=== PATIENT | male | born 1960 | race African-American/Black ===

== ENCOUNTER 2017-12-23 12:18 | Inpatient (IN) | payer OTHER ==
[2017-12-23 12:38] VITALS: BMI 23.8
[2017-12-23] MEDS ORDERED: ACETAMINOPHEN 325 MG TABLET (FP) PO PRN (13:23)
[2017-12-23] MEDS ORDERED: NICOTINE POLACRILEX 4 MG GUM BC PRN (13:23)
[2017-12-23] MEDS ORDERED: P-EPHED 60MG/TRIPROLIDI 2.5MG TABLET PO PRN (13:23)
[2017-12-23] MEDS ORDERED: MAGNESIUM HYDROX 2400MG/30ML ORAL SUSPENSION 30 ML CUP PO PRN (13:23)
[2017-12-23] MEDS ORDERED: MENTHOL/PHENOL 1 EACH UD MM PRN (13:23)
[2017-12-23] MEDS ORDERED: MAGNESIUM CITRATE 300 ML BOTTLE PO PRN (13:23)
[2017-12-23] MEDS ORDERED: LOPERAMIDE HCL 2 MG CAPSULE PO PRN (13:23)
[2017-12-23] MEDS ORDERED: chlordiazePOXIDE HCL 25 MG CAPSULE PO PRN (13:23)
[2017-12-23] MEDS ORDERED: MAG HYDROX/AL HYDROX/SIMETH 30 ML UNIT-DOSE CUP PO PRN (13:23)
[2017-12-23] MEDS ORDERED: guaiFENesin/D-METHORPHAN HB 10 ML UNIT-DOSE CUPS PO PRN (13:23)
--- NOTE | 2017-12-23 13:23 | HP ---
CIWA Score - CIWA Score Nausea/Vomitin-Mild Nausea/No Vomiting Muscle Tremors: 3 Anxiety: 4-Mod. Anxious/Guarded Agitation: 4-Moderately Restless Paroxysmal Sweats: 1-Minimal Palms Moist Orientation: 1-Uncertain about Date Tacttile Disturbances: 0-None Auditory Disturbances: 0-None Visual Disturbances: 0-None Headache: 0-None Present CIWA-Ar Total Score: 14 Admission ROS BHS - HPI Chief Complaint: alcohol withdrawal sx Allergies/Adverse Reactions: Allergies Allergy/AdvReac Type Severity Reaction Status Date / Time No Known Allergies Allergy Verified 12/23/17 13:02 History of Present Illness: 57 years old male with long history of alcohol nicotine dependence has right inqoin hernia depression hepatitis c is admitted to detox Exam Limitations: No Limitations - Ebola screening Have you traveled outside of the country in the last 21 days: No Have you had contact with anyone from an Ebola affected area: No Have you been sick,other than usual withdrawal symptoms: No Do you have a fever: No - Review of Systems Constitutional: Loss of Appetite, Changes in sleep, Unintentional Wgt. Loss, Unexplained wgt Loss EENT: reports: Blurred Vision (eye glasses) Respiratory: reports: No Symptoms reported Cardiac: reports: No Symptoms Reported GI: reports: Nausea, Poor Appetite, Poor Fluid Intake, Abdominal cramping : reports: No Symptoms Reported Musculoskeletal: reports: No Symptoms Reported Integumentary: reports: No Symptoms Reported Neuro: reports: Tremors Endocrine: reports: No Symptoms Reported Hematology: reports: No Symptoms Reported Psychiatric: reports: Judgement Intact, Anxious, Depressed Other Systems: Reviewed and Negative Patient History - Patient Medical History Hx Anemia: No Hx Asthma: No Hx Chronic Obstructive Pulmonary Disease (COPD): No Hx Cancer: No Hx Cardiac Disorders: No Hx Congestive Heart Failure: No Hx Hypertension: No Hx Hypercholesterolemia: No Hx Pacemaker: No HX Cerebrovascular Accident: No Hx Seizures: No Hx Dementia: No Hx Diabetes: No Hx Gastrointestinal Disorders: No Hx Liver Disease: No Hx Genitourinary Disorders: No Hx Sexually Transmitted Disorders: No Hx Renal Disease (ESRD): No Hx Thyroid Disease: No Hx Human Immunodeficiency Virus (HIV): No Hx Hepatitis C: Yes Hx Depression: Yes Hx Suicide Attempt: No Hx Bipolar Disorder: No Hx Schizophrenia: No - Patient Surgical History Past Surgical History: No Hx Neurologic Surgery: No Hx Cataract Extraction: No Hx Cardiac Surgery: No Hx Lung Surgery: No Hx Breast Surgery: No Hx Breast Biopsy: No Hx Abdominal Surgery: No Hx Appendectomy: No Hx Cholecystectomy: No Hx Genitourinary Surgery: No Hx Orthopedic Surgery: No - PPD History Previous Implant?: Yes Documented Results: Negative w/proof Implanted On Prior [facility] Admission?: Yes Date: 05/14/13 Results: 0 mm PPD to be Administered?: Yes - Smoking Cessation Smoking history: Current every day smoker Have you smoked in the past 12 months: Yes Aproximately how many cigarettes per day: 20 Cigars Per Day: 0 Hx Chewing Tobacco Use: No Initiated information on smoking cessation: Yes 'Breaking Loose' booklet given: 12/23/17 - Substance & Tx. History Hx Alcohol Use: Yes Hx Substance Use: Yes Substance Use Type: Alcohol, Cocaine, Marijuana Hx Substance Use Treatment: Yes (2012) - Substances Abused Crack Route: Smoking Frequency: Daily Amount used: $150 Age of first use: 28 Date of Last Use: 12/22/17 Alcohol-beer Route: Oral Frequency: Daily Amount used: 1-2 6 pks. Age of first use: 28 Date of Last Use: 12/22/17 Family Disease History - Family Disease History Family Disease History: Heart Disease: Mother (), Other: Father (alcohol ,), Mother Admission Physical Exam S - Vital Signs Vital Signs: Vital Signs - 24 hr 12/23/17 12:31 Temperature 97.4 F L Pulse Rate 82 Respiratory 18 Rate Blood Pressure 125/73 - Physical General Appearance: Yes: Appropriately Dressed, Mild Distress, Thin, Tremorous, Irritable, Sweating, Anxious HEENTM: Yes: Hearing grossly Normal, Normocephalic, Normal Voice Respiratory: Yes: Chest Non-Tender, Lungs Clear, Normal Breath Sounds, No Respiratory Distress, No Accessory Muscle Use Neck: Yes: Supple, Trachea in good position Breast: Yes: Breasts Symetrical, No Discharge Cardiology: Yes: Regular Rhythm, Regular Rate, S1, S2 Abdominal: Yes: Normal Bowel Sounds, Non Tender, Flat Genitourinary: Yes: Within Normal Limits Back: Yes: Normal Inspection Musculoskeletal: Yes: full range of Motion, Gait Steady Extremities: Yes: Normal Inspection, Normal Range of Motion, Non-Tender, Tremors Neurological: Yes: Alert, Motor Strength 5/5, Normal Response, Depressed Affect Integumentary: Yes: Warm Lymphatic: Yes: Within Normal Limits - Diagnostic (1) Alcohol dependence with uncomplicated withdrawal Current Visit: Yes Status: Acute (2) Depression (emotion) Current Visit: Yes Status: Suspected Qualifiers: Depression Type: dysthymia Qualified Code(s): F34.1 - Dysthymic disorder (3) Weight loss Current Visit: Yes Status: Acute (4) Nicotine dependence Current Visit: Yes Status: Acute Qualifiers: Nicotine product type: cigarettes Substance use status: in withdrawal Qualified Code(s): F17.213 - Nicotine dependence, cigarettes, with withdrawal Cleared for Admission [facility] - Detox or Rehab [facility] Level of Care: Medically Managed Detox Regimen/Protocol: Librium S Breath Alcohol Content Breath Alcohol Content: 0 Urine Drug Screen - Results Drug Screen Negative: No Urine Drug Screen Results: THC-Marijuana, JAXSON-Cocaine
[2017-12-23] MEDS: NICOTINE 21 MG/24 HOURS TOPICAL PATCH TD SCH (15:00)
[2017-12-23] MEDS: chlordiazePOXIDE HCL 25 MG CAPSULE PO SCH ×2 (17:24→22:13)
[2017-12-23] MEDS ORDERED: MELATONIN 5 MG TABLETS PO PRN (22:00)
[2017-12-23] MEDS: THIAMINE HCL 100 MG TABLET (FP) PO SCH (22:13)
[2017-12-24 04:07] LABS: URINE APPEARANCE CLEAR; URINE BILIRUBIN NEGATIVE (<2.0 mg/dL); URINE BLOOD NEGATIVE (NEGATIVE); URINE COLOR AMBER; URINE GLUCOSE (UA) NEGATIVE (NEGATIVE); URINE KETONE NEGATIVE (NEGATIVE); URINE LEUK ESTERASE NEGATIVE (NEGATIVE); URINE NITRITE NEGATIVE (NEGATIVE); URINE PROTEIN NEGATIVE (NEGATIVE); URINE UROBILINOGEN 4.0 E.U/dl mg/dL (0.2-1.0)
[2017-12-24] MEDS: chlordiazePOXIDE HCL 25 MG CAPSULE PO SCH ×4 (05:35→22:22)
[2017-12-24 10:22] LABS: HEMATOCRIT 40.7 % (35.4-49); HEMOGLOBIN 13.5 GM/dL (11.7-16.9); MCH 30.3 pg (25.7-33.7); MCHC 33.2 g/dl (32.0-35.9); MEAN CELL VOLUME 91.3 fl (80-96); MEAN PLT VOLUME 9.3 fl (7.5-11.1); PLATELET COUNT 176 K/MM3 (134-434); RBC 4.46 M/mm3 (4.00-5.60); RDW 11.9 % (11.9-15.9); WHITE BLOOD COUNT 3.9 K/mm3 (4.0-10.0)
[2017-12-24] MEDS: NICOTINE 21 MG/24 HOURS TOPICAL PATCH TD SCH (10:37)
[2017-12-24] MEDS: PRENATAL VITAMINS W/ FOLIC ACID TABLET (FP) PO SCH (10:37)
[2017-12-24 10:52] LABS: CHLORIDE 105 mmol/L (98-107); POTASSIUM 3.7 mmol/L (3.5-5.1); SODIUM 140 mmol/L (136-145)
[2017-12-24 11:06] LABS: ALBUMIN 4.2 g/dl (3.4-5.0); ALK PHOS 73 U/L (45-117); ANION GAP 8 (8-16); BILIRUBIN,TOTAL 0.6 mg/dL (0.2-1.0); BLOOD UREA NITROGEN 10 mg/dL (7-18); CALCIUM 8.8 mg/dL (8.5-10.1); CO2 27 mmol/L (21-32); CREATININE 1.1 mg/dL (0.7-1.3); GLUCOSE,RANDOM 86 mg/dL (74-106); SGOT/AST 29 U/L (15-37); SGPT/ALT 30 U/L (12-78); TOT PROT 8.3 g/dl (6.4-8.2)
--- NOTE | 2017-12-24 11:08 | CONSULT ---
[facility] Psychiatric Consult - Data Date of interview: 12/24/17 Admission source: [facility] Identifying data: Readmission to [facility] for this 57 y/o AA male seeking detox treatment on for alcohol and cocaine (crack) dependence.Patient is ,a father of four,domiciled,unemployed and supported on Public Assistance. Substance Abuse History: Confirmed by the patient in my interview.Smoking history: Current every day smoker. Have you smoked in the past 12 months: Yes. Aproximately how many cigarettes per day: 20. Cigars Per Day: 0. Hx Chewing Tobacco Use: No. Initiated information on smoking cessation: Yes. 'Breaking Loose' booklet given: 12/23/17. - Substance & Tx. History. Hx Alcohol Use: Yes. Hx Substance Use: Yes. Substance Use Type: Alcohol, Cocaine, Marijuana. Hx Substance Use Treatment: Yes (2012). - Substances Abused. Crack. Route : Smoking. Frequency: Daily. Amount used: $150. Age of first use: 28. Date of Last Use: 12/22/17. Alcohol-beer. Route: Oral. Frequency: Daily. Amount used: 1-2 6 pks. Age of first use: 28. Date of Last Use: 12/22/17 Medical History: Hepatitis C and right inguinal hernia. Psychiatric History: Patient denies. Physical/Sexual Abuse/Trauma History: Patient denies. Additional Comment: Urine Drug Screen Results: THC-Marijuana, JAXSON-Cocaine.Noted. Mental Status Exam - Mental Status Exam Alert and Oriented to: Time, Place, Person Cognitive Function: Good Patient Appearance: Well Groomed Mood: Euthymic Affect: Appropriate, Normal Range Patient Behavior: Fatigued, Cooperative Speech Pattern: Clear, Appropriate Voice Loudness: Normal Thought Process: Intact, Goal Oriented Thought Disorder: Not Present Hallucinations: Denies Suicidal Ideation: Denies Homicidal Ideation: Denies Insight/Judgement: Poor Sleep: Poorly, Difficulty falling asleep Appetite: Good Muscle strength/Tone: Normal Gait/Station: Normal Psychiatric Findings - Problem List ([place] 1, 2,3) (1) Alcohol dependence with uncomplicated withdrawal Current Visit: Yes Status: Acute (2) Cocaine dependence Current Visit: Yes Status: Active (3) Nicotine dependence Current Visit: Yes Status: Acute Qualifiers: Nicotine product type: cigarettes Substance use status: in withdrawal Qualified Code(s): F17.213 - Nicotine dependence, cigarettes, with withdrawal (4) Insomnia Current Visit: Yes Status: Acute - Initial Treatment Plan Initial Treatment Plan: Psychoeducation.Sleep hygiene.Detoxification in progress.Ambien 5 mg po hs prn.Risk of parasomnias discussed with the patient.Mr Pereira agrees to this careplan.Observation.
--- NOTE | 2017-12-24 15:06 | PN ---
[facility] CIWA - CIWA Score Nausea/Vomitin-No Nausea/No Vomiting Muscle Tremors: None Anxiety: 4-Mod. Anxious/Guarded Agitation: 2 Paroxysmal Sweats: 3 Orientation: 0-Oriented Tacttile Disturbances: 2-Mild Itch/Numbness/Burn Auditory Disturbances: 3-Moderate Harsh/Frighten Visual Disturbances: 1-Very Mild Sensitivity Headache: 0-None Present CIWA-Ar Total Score: 15 S Progress Note (SOAP) Subjective: Fatigue, Sweating, Interrupted Sleep, Anxious. Objective: PATIENT A & O X 3. NO ACUTE DISTRESS. 12/24/17 15:05 Vital Signs Temperature 97 F L 12/24/17 14:00 Pulse Rate 74 12/24/17 14:00 Respiratory Rate 18 12/24/17 14:00 Blood Pressure 113/75 12/24/17 14:00 O2 Sat by Pulse Oximetry (%) Laboratory Tests 12/23/17 12/24/17 12/24/17 16:40 05:50 05:50 WBC 3.9 L RBC 4.46 Hgb 13.5 D Hct 40.7 MCV 91.3 MCH 30.3 MCHC 33.2 RDW 11.9 Plt Count 176 MPV 9.3 Sodium 140 Potassium 3.7 Chloride 105 Carbon Dioxide 27 Anion Gap 8 BUN 10 D Creatinine 1.1 D Creat Clearance w eGFR > 60 Random Glucose 86 D Calcium 8.8 Total Bilirubin 0.6 AST 29 D ALT 30 D Alkaline Phosphatase 73 D Total Protein 8.3 H Albumin 4.2 Urine Color Holly Urine Appearance Clear Urine pH 5.0 Ur Specific [place] 1.026 Urine Protein Negative Urine Glucose (UA) Negative Urine Ketones Negative Urine Blood Negative Urine Nitrite Negative Urine Bilirubin Negative Urine Urobilinogen 4.0 e.u/dl Ur Leukocyte Esterase Negative LABS NOTED. RPR RESULT PENDING. 12/24/17 15:05 Assessment: 12/24/17 15:05 WITHDRAWAL SYMPTOMS. Plan: CONTINUE DETOX.
[2017-12-24] MEDS: THIAMINE HCL 100 MG TABLET (FP) PO SCH (22:21)
[2017-12-25] MEDS: chlordiazePOXIDE HCL 25 MG CAPSULE PO SCH ×2 (06:56→10:21)
[2017-12-25] MEDS: PRENATAL VITAMINS W/ FOLIC ACID TABLET (FP) PO SCH (10:19)
[2017-12-25] MEDS: NICOTINE 21 MG/24 HOURS TOPICAL PATCH TD SCH (10:20)
--- NOTE | 2017-12-25 16:28 | PN ---
S CIWA - CIWA Score Nausea/Vomitin-No Nausea/No Vomiting Muscle Tremors: 2 Anxiety: 5 Agitation: 4-Moderately Restless Paroxysmal Sweats: No Perspiration Orientation: 0-Oriented Tacttile Disturbances: 1-Very Mild Itch/Numbness Auditory Disturbances: 0-None Visual Disturbances: 2-Mild Sensitivity Headache: 0-None Present CIWA-Ar Total Score: 14 BHS Progress Note (SOAP) Subjective: Anxious, Tremors, Fatigue, Interrupted Sleep. Objective: PATIENT A & O X 3, OBSERVED AMBULATING ON UNIT. NO ACUTE DISTRESS. 12/25/17 16:26 Vital Signs Temperature 96.7 F L 12/25/17 13:18 Pulse Rate 75 12/25/17 13:18 Respiratory Rate 18 12/25/17 13:18 Blood Pressure 107/63 12/25/17 13:18 O2 Sat by Pulse Oximetry (%) Laboratory Tests 12/23/17 12/24/17 12/24/17 16:40 05:50 05:50 WBC 3.9 L RBC 4.46 Hgb 13.5 D Hct 40.7 MCV 91.3 MCH 30.3 MCHC 33.2 RDW 11.9 Plt Count 176 MPV 9.3 Sodium 140 Potassium 3.7 Chloride 105 Carbon Dioxide 27 Anion Gap 8 BUN 10 D Creatinine 1.1 D Creat Clearance w eGFR > 60 Random Glucose 86 D Calcium 8.8 Total Bilirubin 0.6 AST 29 D ALT 30 D Alkaline Phosphatase 73 D Total Protein 8.3 H Albumin 4.2 Urine Color Holly Urine Appearance Clear Urine pH 5.0 Ur Specific [place] 1.026 Urine Protein Negative Urine Glucose (UA) Negative Urine Ketones Negative Urine Blood Negative Urine Nitrite Negative Urine Bilirubin Negative Urine Urobilinogen 4.0 e.u/dl Ur Leukocyte Esterase Negative RPR Titer 12/24/17 05:50 WBC RBC Hgb Hct MCV MCH MCHC RDW Plt Count MPV Sodium Potassium Chloride Carbon Dioxide Anion Gap BUN Creatinine Creat Clearance w eGFR Random Glucose Calcium Total Bilirubin AST ALT Alkaline Phosphatase Total Protein Albumin Urine Color Urine Appearance Urine pH Ur Specific [place] Urine Protein Urine Glucose (UA) Urine Ketones Urine Blood Urine Nitrite Urine Bilirubin Urine Urobilinogen Ur Leukocyte Esterase RPR Titer Nonreactive labs noted. Assessment: 12/25/17 16:26 WITHDRAWAL SYMPTOMS. Plan: CONTINUE DETOX.
[2017-12-25] MEDS: chlordiazePOXIDE 5 MG CAPSULE PO SCH ×2 (17:09→22:25)
[2017-12-25] MEDS: THIAMINE HCL 100 MG TABLET (FP) PO SCH (22:25)
--- NOTE | 2017-12-25 22:46 | EKG ---
Test Reason : Blood Pressure : / mmHG Vent. Rate : 070 BPM Atrial Rate : 070 BPM P-R Int : 162 ms QRS Dur : 086 ms QT Int : 444 ms P-R-T Axes : 071 077 077 degrees QTc Int : 479 ms NORMAL SINUS RHYTHM NORMAL ECG NO PREVIOUS ECGS AVAILABLE Confirmed by BARRERA NORRIS MD ([id number]) on 12/25/2017 10:46:04 PM Referred By: Confirmed By:BARRERA NORRIS MD
[2017-12-26] MEDS: chlordiazePOXIDE 5 MG CAPSULE PO SCH ×2 (05:53→10:26)
[2017-12-26] MEDS: PRENATAL VITAMINS W/ FOLIC ACID TABLET (FP) PO SCH (10:26)
[2017-12-26] MEDS: NICOTINE 21 MG/24 HOURS TOPICAL PATCH TD SCH (10:27)
--- NOTE | 2017-12-26 11:25 | PN ---
BHS Progress Note (SOAP) Subjective: ANXIETY,SWEATS, IRRITABILITY,.BACKACHE, LEG PAIN DUE TO TRUAMA. REPORTS HIT LEG AGAINST OBJECT FEW DAYS BEFORE COMING HERE. Objective: 12/26/17 11:20 Vital Signs Temperature 98.5 F 12/26/17 09:04 Pulse Rate 77 12/26/17 09:04 Respiratory Rate 18 12/26/17 09:04 Blood Pressure 97/59 12/26/17 09:04 O2 Sat by Pulse Oximetry (%) Laboratory Tests 12/23/17 12/24/17 12/24/17 16:40 05:50 05:50 WBC 3.9 L RBC 4.46 Hgb 13.5 D Hct 40.7 MCV 91.3 MCH 30.3 MCHC 33.2 RDW 11.9 Plt Count 176 MPV 9.3 Sodium 140 Potassium 3.7 Chloride 105 Carbon Dioxide 27 Anion Gap 8 BUN 10 D Creatinine 1.1 D Creat Clearance w eGFR > 60 Random Glucose 86 D Calcium 8.8 Total Bilirubin 0.6 AST 29 D ALT 30 D Alkaline Phosphatase 73 D Total Protein 8.3 H Albumin 4.2 Urine Color Holly Urine Appearance Clear Urine pH 5.0 Ur Specific [place] 1.026 Urine Protein Negative Urine Glucose (UA) Negative Urine Ketones Negative Urine Blood Negative Urine Nitrite Negative Urine Bilirubin Negative Urine Urobilinogen 4.0 e.u/dl Ur Leukocyte Esterase Negative RPR Titer 12/24/17 05:50 WBC RBC Hgb Hct MCV MCH MCHC RDW Plt Count MPV Sodium Potassium Chloride Carbon Dioxide Anion Gap BUN Creatinine Creat Clearance w eGFR Random Glucose Calcium Total Bilirubin AST ALT Alkaline Phosphatase Total Protein Albumin Urine Color Urine Appearance Urine pH Ur Specific [place] Urine Protein Urine Glucose (UA) Urine Ketones Urine Blood Urine Nitrite Urine Bilirubin Urine Urobilinogen Ur Leukocyte Esterase RPR Titer Nonreactive RIGHT LOWER LEG WITH ECHYMOTIC AREA ON INNER ASPECT. Assessment: 12/26/17 11:21 WITHDRAWAL SX Plan: CONTINUE DETOX MOTRIN PRN
[2017-12-26] MEDS: IBUPROFEN 400 MG TABLET (FP) PO PRN (16:30)
[2017-12-26] MEDS: chlordiazePOXIDE HCL 10 MG CAPSULE PO SCH ×2 (16:31→22:10)
[2017-12-26] MEDS: THIAMINE HCL 100 MG TABLET (FP) PO SCH (22:10)
[2017-12-27] MEDS: IBUPROFEN 400 MG TABLET (FP) PO PRN (03:37)
--- NOTE | 2017-12-27 05:17 | PN ---
[facility] Progress Note Note: I was called by the nurse, Ms. Lizz Can to evaluated patient complaining of pain. As per nurse, patient states, ''my hernia has dropped"' I went with the [employer] supervisor to the patient's room to examine him. Patient refused to be examined, stating " What will you do for me now ". He refused to lay on the bed or sit down to be examined. Risks and consequences of patient's refusal to be examined explained to him. Patient verbalized understanding. Vital Signs Temperature 98.8 F 12/27/17 04:45 Pulse Rate 85 12/27/17 04:45 Respiratory Rate 20 12/27/17 04:45 Blood Pressure 134/93 12/27/17 04:45 O2 Sat by Pulse Oximetry (%)
[2017-12-27] MEDS: chlordiazePOXIDE HCL 10 MG CAPSULE PO SCH ×2 (06:54→10:28)
[2017-12-27 09:14] VITALS: BP 123/79; PULSE 71; TEMP 97.3
--- NOTE | 2017-12-27 10:08 | PN ---
BHS Progress Note (SOAP) Subjective: DETOX COMPLETED. ALERT O X 3. NO COMPLAINT OF DISCOMFORT. PT FOCUSING ON GOING TO REHAB TODAY. BED AVAILABLE FOR REHAB ON AND WANTS TO GO. Objective: 12/27/17 10:07 Vital Signs 12/27/17 12/27/17 12/27/17 04:45 05:51 09:13 Temperature 98.8 F 98.8 F 97.3 F L Pulse Rate 85 85 71 Respiratory 20 18 18 Rate Blood Pressure 134/93 134/93 123/79 Laboratory Tests 12/23/17 12/24/17 12/24/17 16:40 05:50 05:50 WBC 3.9 L RBC 4.46 Hgb 13.5 D Hct 40.7 MCV 91.3 MCH 30.3 MCHC 33.2 RDW 11.9 Plt Count 176 MPV 9.3 Sodium 140 Potassium 3.7 Chloride 105 Carbon Dioxide 27 Anion Gap 8 BUN 10 D Creatinine 1.1 D Creat Clearance w eGFR > 60 Random Glucose 86 D Calcium 8.8 Total Bilirubin 0.6 AST 29 D ALT 30 D Alkaline Phosphatase 73 D Total Protein 8.3 H Albumin 4.2 Urine Color Holly Urine Appearance Clear Urine pH 5.0 Ur Specific [place] 1.026 Urine Protein Negative Urine Glucose (UA) Negative Urine Ketones Negative Urine Blood Negative Urine Nitrite Negative Urine Bilirubin Negative Urine Urobilinogen 4.0 e.u/dl Ur Leukocyte Esterase Negative RPR Titer 12/24/17 05:50 WBC RBC Hgb Hct MCV MCH MCHC RDW Plt Count MPV Sodium Potassium Chloride Carbon Dioxide Anion Gap BUN Creatinine Creat Clearance w eGFR Random Glucose Calcium Total Bilirubin AST ALT Alkaline Phosphatase Total Protein Albumin Urine Color Urine Appearance Urine pH Ur Specific [place] Urine Protein Urine Glucose (UA) Urine Ketones Urine Blood Urine Nitrite Urine Bilirubin Urine Urobilinogen Ur Leukocyte Esterase RPR Titer Nonreactive Assessment: 12/27/17 10:08 MEDICALLY STABLE Plan: D/C PT TODAY TO [facility] .
--- NOTE | 2017-12-27 10:13 | DS ---
[facility] Detox Discharge Summary Admission Date: 12/23/17 Discharge Date: 12/27/17 - History Present History: Alcohol Dependence, Cocaine Dependence Additional Comments: DETOX COMPLETED. ALERT O X 3. NAD. REPORTS PRIMARY MEDICAL MANAGEMENT AT [facility]. PT REPORTS HE HAS SURGICAL APPOINTMENT ON FOR HERNIA REPAIR. PT HAS BEEN INSTRUCTED TO INFORM HIS COUNSELOR IN REHAB RE: APPOINTMENT DATE FOR APPROPRIATE FOLLOW UPON DISCHARGE FROM REHAB. Pertinent Past History: PLEASE SEE DX BELOW - Physical Exam Results Vital Signs: Vital Signs Temperature 97.3 F L 12/27/17 09:13 Pulse Rate 71 12/27/17 09:13 Respiratory Rate 18 12/27/17 09:13 Blood Pressure 123/79 12/27/17 09:13 O2 Sat by Pulse Oximetry (%) Pertinent Admission Physical Exam Findings: WITHDRAWAL SX Laboratory Tests 12/23/17 12/24/17 12/24/17 16:40 05:50 05:50 WBC 3.9 L RBC 4.46 Hgb 13.5 D Hct 40.7 MCV 91.3 MCH 30.3 MCHC 33.2 RDW 11.9 Plt Count 176 MPV 9.3 Sodium 140 Potassium 3.7 Chloride 105 Carbon Dioxide 27 Anion Gap 8 BUN 10 D Creatinine 1.1 D Creat Clearance w eGFR > 60 Random Glucose 86 D Calcium 8.8 Total Bilirubin 0.6 AST 29 D ALT 30 D Alkaline Phosphatase 73 D Total Protein 8.3 H Albumin 4.2 Urine Color Holly Urine Appearance Clear Urine pH 5.0 Ur Specific [place] 1.026 Urine Protein Negative Urine Glucose (UA) Negative Urine Ketones Negative Urine Blood Negative Urine Nitrite Negative Urine Bilirubin Negative Urine Urobilinogen 4.0 e.u/dl Ur Leukocyte Esterase Negative RPR Titer 12/24/17 05:50 WBC RBC Hgb Hct MCV MCH MCHC RDW Plt Count MPV Sodium Potassium Chloride Carbon Dioxide Anion Gap BUN Creatinine Creat Clearance w eGFR Random Glucose Calcium Total Bilirubin AST ALT Alkaline Phosphatase Total Protein Albumin Urine Color Urine Appearance Urine pH Ur Specific [place] Urine Protein Urine Glucose (UA) Urine Ketones Urine Blood Urine Nitrite Urine Bilirubin Urine Urobilinogen Ur Leukocyte Esterase RPR Titer Nonreactive - Treatment Hospital Course: Detox Protocol Followed, Detoxed Safely, Responded well, Discharged Condition Good, Rehab Referral Accepted Patient has Accepted a Rehab Referral to: [facility] - Medication Discharge Medications: Ambulatory Orders NK [No Known Home Medication] 12/23/17 - Diagnosis (1) Cocaine dependence Current Visit: Yes Status: Active (2) Alcohol dependence with uncomplicated withdrawal Current Visit: Yes Status: Acute (3) Nicotine dependence Current Visit: Yes Status: Acute Qualifiers: Nicotine product type: cigarettes Substance use status: in withdrawal Qualified Code(s): F17.213 - Nicotine dependence, cigarettes, with withdrawal (4) Weight loss Current Visit: Yes Status: Acute (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
[2017-12-27] MEDS: NICOTINE 21 MG/24 HOURS TOPICAL PATCH TD SCH (10:24)
[2017-12-27] MEDS: PRENATAL VITAMINS W/ FOLIC ACID TABLET (FP) PO SCH (10:24)
== END 2017-12-27 13:39 | disposition home or self-care (01) | DRG 775 ==
LOC: YASAS 12:18 → Y3N 14:01
PROVIDERS: ADMIT Surgery; ATTEND Surgery
PROC: HZ2ZZZZ Detoxification Services for Substance Abuse Treatment (ICD-10-PCS; principal; 2017-12-23)
DX: F10.230 Alcohol dependence with withdrawal, uncomplicated (principal); F12.20 Cannabis dependence, uncomplicated; F17.213 Nicotine dependence, cigarettes, with withdrawal; F34.1 Dysthymic disorder; G47.00 Insomnia, unspecified; I83.91 Asymptomatic varicose veins of right lower extremity; B18.2 Chronic viral hepatitis C; Z87.898 Personal history of other specified conditions
CPT/HCPCS: 36415; 80053; 81003; 85027; 86593; 93005; 93010

== ENCOUNTER 2017-12-27 13:54 | Inpatient (IN) | payer OTHER ==
--- NOTE | 2017-12-27 14:26 | HP ---
[facility] Re[facility] Assess/Revision - Admission History Admitted to Rehab from: [facility] Date of Admission to Rehab: 12/27/17 - Findings Detox History & Physical reviewed: Yes Concur with findings: Yes Comments/Additional Findings: PT COMPLETED DETOX ON TODAY. Inpatient Rehab Admission - Initial Determination Are CD services needed?: Yes Free of communicable disease: Yes Not in need of hospitalization: Yes - Rehab Admission Criteria Patient is meeting Inpatient Rehab admission criteria:: Yes
[2017-12-27] MEDS ORDERED: hydrOXYzine PAMOATE 50 MG CAPSULE (FP) PO PRN (14:27)
[2017-12-27] MEDS ORDERED: LOPERAMIDE HCL 2 MG CAPSULE PO PRN (14:27)
[2017-12-27] MEDS ORDERED: guaiFENesin/D-METHORPHAN HB 10 ML UNIT-DOSE CUPS PO PRN (14:27)
[2017-12-27] MEDS ORDERED: P-EPHED 60MG/TRIPROLIDI 2.5MG TABLET PO PRN (14:27)
[2017-12-27] MEDS ORDERED: MAG HYDROX/AL HYDROX/SIMETH 30 ML UNIT-DOSE CUP PO PRN (14:27)
[2017-12-27] MEDS ORDERED: MAGNESIUM HYDROX 2400MG/30ML ORAL SUSPENSION 30 ML CUP PO PRN (14:27)
[2017-12-27] MEDS ORDERED: ACETAMINOPHEN 325 MG TABLET (FP) PO PRN (14:27)
[2017-12-27] MEDS ORDERED: MAGNESIUM CITRATE 300 ML BOTTLE PO PRN (14:27)
[2017-12-27] MEDS ORDERED: NICOTINE POLACRILEX 4 MG GUM BUC PRN (14:27)
[2017-12-27] MEDS ORDERED: MENTHOL/PHENOL 1 EACH UD MM PRN (14:27)
[2017-12-27] MEDS: NICOTINE 21 MG/24 HOURS TOPICAL PATCH TD SCH (14:51)
[2017-12-27] MEDS: IBUPROFEN 400 MG TABLET (FP) PO PRN (16:39)
[2017-12-27] MEDS ORDERED: THIAMINE HCL 100 MG TABLET (FP) PO SCH (22:00)
[2017-12-27] MEDS ORDERED: MELATONIN 5 MG TABLETS PO PRN (22:00)
[2017-12-28] MEDS: IBUPROFEN 400 MG TABLET (FP) PO PRN (03:09)
--- NOTE | 2017-12-28 06:39 | HP ---
Psychiatrist Admission - Data Date of interview: 12/28/17 Admission source: [facility] Identifying data: This is the first [facility] admission for this 57 years old Black male, father of 4 children, unemployed on public assistance, domiciled Medical History: Significant for hepatitis C and history of right inguinal hernia repair. Smokes cigarettes 1 ppd Psychiatric History: Denies history of previous psychiatric treatment Physical/Sexual Abuse/Trauma History: Denies history of emotional, physical or sexual abuse as well as DV relationship Additional Comment: Reports Vital Signs: Vital Signs - 24 hr 12/27/17 12/28/17 14:21 00:30 Temperature 98.3 F Pulse Rate 81 Respiratory 20 18 Rate Blood Pressure 139/73 Allergies/Adverse Reactions: Allergies Allergy/AdvReac Type Severity Reaction Status Date / Time No Known Allergies Allergy Verified 12/27/17 14:21 Date of last physical exam: 12/23/17 Concur with the findings of this exam: Yes - Substance Abuse/Tx History Hx Alcohol Use: Yes Hx Substance Use: Yes Substance Use Type: Alcohol (Started drinking alcohol at age 28, consumes 1-2x 6pk of beer daily. Last drank on 12/22/17), Cocaine (Started smoking crack cocaine at age 28, consumes $150 worth daily. Last smoked on 12/22/17) Hx Substance Use Treatment: Yes (2 previous inpt detox @ [facility]) Mental Status Exam - Mental Status Exam Alert and Oriented to: Time, Place, Person Cognitive Function: Fair Patient Appearance: Well Groomed Mood: Irritable Affect: Appropriate Patient Behavior: Cooperative (superficialy) Speech Pattern: Clear Voice Loudness: Normal Thought Process: Intact, Goal Oriented Hallucinations: Denies Suicidal Ideation: Denies Homicidal Ideation: Denies Insight/Judgement: Fair Sleep: Fair Appetite: Good Muscle strength/Tone: Normal Gait/Station: Normal Psychiatric Findings - Problem List ([place] 1, 2,3) (1) Alcohol dependence Current Visit: No Status: Active (2) Cocaine dependence Current Visit: No Status: Active (3) Nicotine dependence Current Visit: No Status: Chronic Qualifiers: Nicotine product type: cigarettes Substance use status: in withdrawal Qualified Code(s): F17.213 - Nicotine dependence, cigarettes, with withdrawal (4) Substance induced mood disorder Current Visit: Yes Status: Acute (5) Hepatitis C Current Visit: Yes Status: Chronic - Initial Treatment Plan Initial Treatment Plan: Monitor progress
[2017-12-28 06:42] VITALS: BP 121/77; PULSE 68; TEMP 97.4
[2017-12-28] MEDS ORDERED: PRENATAL VITAMINS W/ FOLIC ACID TABLET (FP) PO SCH (10:00)
[2017-12-28] MEDS: NICOTINE 21 MG/24 HOURS TOPICAL PATCH TD SCH (10:39)
== END 2017-12-28 10:25 | disposition left against medical advice (07) | DRG 770 ==
LOC: YASAS 13:54 → Y5N 13:55
PROVIDERS: ADMIT Psychiatry & Neurology Psychiatry; ATTEND Psychiatry & Neurology Psychiatry
PROC: HZ42ZZZ Group Counseling for Substance Abuse Treatment, Cognitive-Behavioral (ICD-10-PCS; principal; 2017-12-27)
DX: F10.20 Alcohol dependence, uncomplicated (principal); F14.20 Cocaine dependence, uncomplicated; F17.213 Nicotine dependence, cigarettes, with withdrawal; F19.24 Other psychoactive substance dependence with psychoactive substance-induced mood disorder; B18.2 Chronic viral hepatitis C
CPT/HCPCS: 36415; 87389

== ENCOUNTER 2024-04-04 14:35 | Inpatient (IN) | payer OTHER ==
[2024-04-04 15:24] VITALS: BMI 25.1
[2024-04-04] MEDS ORDERED: BENZONATATE 200 MG CAPSULE PO PRN (16:22)
[2024-04-04] MEDS ORDERED: POLYETHYLENE GLYCOL (HEALTHYLAX) 3350 17 GM PACKET PO PRN (16:22)
[2024-04-04] MEDS ORDERED: DOCUSATE SODIUM 100 MG CAPSULE (FP) PO PRN (16:22)
[2024-04-04] MEDS ORDERED: NICOTINE POLACRILEX 2 MG GUM BUC PRN (16:22)
[2024-04-04] MEDS ORDERED: guaiFENesin 600 MG TABLET.ER (FP) PO PRN (16:22)
[2024-04-04] MEDS ORDERED: P-EPHED 60MG/TRIPROLIDI 2.5MG TABLET PO PRN (16:22)
[2024-04-04] MEDS ORDERED: MAGNESIUM HYDROX 2400MG/30ML ORAL SUSPENSION 30 ML CUP PO PRN (16:22)
[2024-04-04] MEDS ORDERED: BENZOCAINE/MENTHOL (CHLORASEPTIC ) LOZENGE MM PRN (16:22)
[2024-04-04] MEDS ORDERED: IBUPROFEN 400 MG TABLET (FP) PO PRN (16:22)
[2024-04-04] MEDS ORDERED: NICOTINE POLACRILEX 2 MG LOZENGE BC PRN (16:22)
[2024-04-04] MEDS ORDERED: hydrOXYzine PAMOATE 25 MG CAPSULE (FP) PO PRN (16:22)
[2024-04-04] MEDS ORDERED: ACETAMINOPHEN 325 MG TABLET (FP) PO PRN (16:22)
[2024-04-04] MEDS ORDERED: LOPERAMIDE HCL 2 MG CAPSULE PO PRN (16:22)
[2024-04-04] MEDS ORDERED: MAG HYDROX/AL HYDROX/SIMETH 30 ML UNIT-DOSE CUP PO PRN (16:22)
[2024-04-04] MEDS: TUBERCULIN PPD 5 TU/0.1ML SYRINGE (IN PATIENT USE ONLY) ID ONE (21:38)
[2024-04-04] MEDS: THIAMINE 100 MG TABLET PO SCH (21:40)
[2024-04-04] MEDS: MELATONIN 5 MG TABLETS PO SCH (21:40)
[2024-04-05] MEDS: PRENATAL VITAMINS W/ FOLIC ACID TABLET (FP) PO SCH (09:50)
[2024-04-05 12:21] LABS: HEMATOCRIT 37.6 % (35.4-49); MCH 28.9 pg (25.7-33.7); MEAN CELL VOLUME 90.3 fl (80-96); MEAN PLT VOLUME 8.8 fl (7.5-11.1); PLATELET COUNT 199 10^3/uL (134-434); RBC 4.16 M/mm3 (4.00-5.60); RDW 12.9 % (11.9-15.9); WHITE BLOOD COUNT 4.1 K/mm3 (4.0-10.0)
[2024-04-05 12:21] LABS: PH,URINE 6.5 (5.0-8.0); URINE APPEARANCE CLEAR; URINE BILIRUBIN 1+ (NEGATIVE); URINE COLOR DK YELLOW; URINE GLUCOSE (UA) NEGATIVE (NEGATIVE); URINE KETONE TRACE (NEGATIVE); URINE LEUK ESTERASE NEGATIVE (NEGATIVE); URINE NITRITE NEGATIVE (NEGATIVE); URINE PROTEIN TRACE (NEGATIVE); URINE UROBILINOGEN 4.0 E.U/dl mg/dL (0.2-1.0)
[2024-04-05 12:27] LABS: CHLORIDE 107 mmol/L (98-107); POTASSIUM 3.4 mmol/L (3.5-5.1); SODIUM 140 mmol/L (136-145)
[2024-04-05 12:33] LABS: ALBUMIN 2.9 g/dl (3.4-5.0); ANION GAP 6 mmol/L (4-13); BLOOD UREA NITROGEN 10.7 mg/dL (7-18); CALCIUM 8.6 mg/dL (8.5-10.1); CO2 27 mmol/L (21-32); GLUCOSE,RANDOM 147 mg/dL (74-106)
[2024-04-05 12:37] LABS: SGOT/AST 30 U/L (15-37); SGPT/ALT 37 U/L (13-61)
[2024-04-05 12:38] LABS: BILIRUBIN,TOTAL 0.5 mg/dL (0.2-1); TOT PROT 6.1 g/dl (6.4-8.2)
[2024-04-05 12:39] LABS: ALK PHOS 89 U/L (45-117)
[2024-04-05 13:15] LABS: SYPHILIS W/ RPR CONF REACTIVE (NONREACTIVE)
[2024-04-06] MEDS: IBUPROFEN 600 MG TABLET (FP) PO PRN (22:03)
[2024-04-07 07:06] VITALS: TEMP 98
[2024-04-07 16:08] VITALS: RESP 18
[2024-04-07] MEDS: LIDOCAINE 4% PATCH TP SCH (18:00)
[2024-04-08] MEDS: LIDOCAINE PATCH REMOVAL MC SCH (06:28)
[2024-04-08 07:16] VITALS: BP 132/82; PULSE 61
== END 2024-04-08 11:16 | disposition left against medical advice (07) | DRG 770 ==
LOC: YASAS 14:35 → Y3W 18:14
PROVIDERS: ADMIT Psychiatry & Neurology Pain Medicine; ATTEND Psychiatry & Neurology Pain Medicine
PROC: HZ42ZZZ Group Counseling for Substance Abuse Treatment, Cognitive-Behavioral (ICD-10-PCS; principal; 2024-04-04)
DX: F10.20 Alcohol dependence, uncomplicated (principal); F14.20 Cocaine dependence, uncomplicated; F17.210 Nicotine dependence, cigarettes, uncomplicated; F34.1 Dysthymic disorder; G47.00 Insomnia, unspecified; I10 Essential (primary) hypertension; Z56.0 Unemployment, unspecified; Z59.00 Homelessness unspecified
CPT/HCPCS: 36415; 80053; 80305; 80307; 81003; 85027; 86593; 86780; 86803; 87522; 87811; 93005; 93010